=== PATIENT | male | born 1995 | race Caucasian/White ===

== ENCOUNTER 2020-07-12 11:09 | Outpatient (CLI) | payer MEDICAID, SELFPAY ==
[2020-07-12 13:23] LABS: CREATININE 1.24 mg/dL (0.70-1.30); Cholesterol 184 mg/dL (<200); HDL Cholesterol 26 mg/dL (40-60); Potassium 4.9 mmol/L (3.5-5.1); Triglyceride 448 mg/dL (<150)
[2020-07-12 13:29] LABS: Hemoglobin A1C 6.8 % (<5.7)
[2020-07-12 13:40] LABS: LDL CHOLESTEROL 112 mg/dL (<100)
[2020-07-12 13:45] LABS: COMMENT (LAB VIEW ONLY) 67.84 mg/dL; Microalb ug/mg Crea 1170.1 ug/mg Cr
== END 2020-07-12 11:29 ==
PROVIDERS: PCP Family Medicine; Visit Provider Family Medicine
DX: E11.65 Type 2 diabetes mellitus with hyperglycemia (principal); I10 Essential (primary) hypertension; E78.5 Hyperlipidemia, unspecified
CPT/HCPCS: 36415; 80061; 83721; 82043; 82565; 82570; 83036; 84132

== ENCOUNTER 2021-07-30 03:16 | Outpatient (CLI) | payer MEDICAID, SELFPAY ==
[2021-07-30 14:06] LABS: Hemoglobin A1C 5.6 % (<5.7)
[2021-07-30 14:29] LABS: Calculated LDL 100 mg/dL (<100); Cholesterol 168 mg/dL (<200); HDL Cholesterol 39 mg/dL (40-60); Triglyceride 145 mg/dL (<150)
== END 2021-07-30 03:17 | disposition home or self-care (01) ==
LOC: LOS 03:16
PROVIDERS: PCP Family Medicine; Visit Provider Family Medicine
DX: R73.9 Hyperglycemia, unspecified (principal); E78.5 Hyperlipidemia, unspecified
CPT/HCPCS: 36415; 80061; 83036

== ENCOUNTER 2022-04-02 01:27 | Outpatient (CLI) | payer MEDICAID, SELFPAY ==
--- OUTSIDE RECORDS SUMMARY | 2022-04-02 01:31 | XMS_ITS | Encounter Summary ---
:1995 Author Organization [facility] Address [address] [place] [address] Care Team Providers Name Role Phone None, Provider Primary Care Provider Unavailable Encounter Details Date Type Department Care Team Description 11/08/2014 Results Only [facility]- Jamie Porter, [address] [place], [place] [id number] (Wo rk) Social History Tobacco Use Types Packs/Day Years Used Date Never Assessed Sex Assigned at Date Recorded Not on file documented as of this encounter Plan of Treatment Not on filedocumented as of this encounter Procedures Procedure Name Priority Date/Time Associated Diagnosis Comme nts SURGICAL PATHOLOGY Routine 11/08/2014 10:26 Resul ts for this EST procedure are i n the results section. documented in this encounter Results SURGICAL PATHOLOGY (11/08/2014 10:26 EST) Pathology Report: SURGICAL PATHOLOGY REPORT [facility] Reports generated via electronic interface contain myla ginal data; LABORATORY however they are lacking the format of the original re port. SERVICES Caution should be taken when reading/interpreting unfo rmatted reports. Name: ? Kizzy QUACH ? Accession #: ? [id number] ? : ? 1995 (Age: 19) ??M ? Collect Date: ? 11/08/2014 ? Location: ? [facility] ? Receive Date: ? 11/09/19 15 ? Provider: JAMIE BOBBY DO Copy to: ? Final Pathologic Diagnosis: NOSE, LEFT INTRANASAL, MASS, BIOPSY: - ??Lobular capillary hemangioma (pyogenic granuloma). Document reviewed and electronically signed by: JAGDEEP WAYNE MD Report ??Date: 11/14/2014 14:52 By the signature above, the attending physician certif ies that he/she has personally conducted a gross and/or microscopic examin ation of the described specimens and rendered or confirmed the above diagnosi s. Specimen(s) Received: Left intranasal lesion Clinical History: Pedunculated intranasal mass; clinical diagnosis code: 239.2 Gross Description: ? Received in formalin labelled with proper patient identification (initials K, B) and left intranasal lesion is a posey-pink pedunculated mucosal covered tissue fragment (0.4 x 0.3 x 0.3 cm). ??The margin is inked blue. ??The specimen is submitted intact in 1. Dyan Londono 11/10/2014 11:36 AM End of Report Specimen Performing Organization Address City/State/ZIP Code Phon e Number [facility] [address] [place] [address] SERVICES documented in this encounter Visit Diagnoses Not on filedocumented in this encounter Care Teams Instructional Consultant Relationship Specialty Start Date End Date None, Provider PCP - General 11/09/14 documented as of this encounter
--- OUTSIDE RECORDS SUMMARY | 2022-04-02 01:31 | XMS_ITS | Encounter Summary ---
:1995 Author Organization [facility] Address [address] [place] [address] Care Team Providers Name Role Phone Unavailable Primary Care Provider Unavailable Encounter Details Date Type Department Care Team Description 11/08/2014 Hospital Encounter [facility]- Gayla Unknown, Provider, [facility] [phone] [place] [address] (Work) [phone] Social History Tobacco Use Types Packs/Day Years Used Date Never Assessed Sex Assigned at Date Recorded Not on file documented as of this encounter Discharge Disposition Disposition Code Departure Means Destination Home or Self [facility] documented in this encounter Plan of Treatment Not on filedocumented as of this encounter Visit Diagnoses Not on filedocumented in this encounter
[2022-04-02 13:03] LABS: CREATININE 1.2 mg/dL (0.70-1.30); Potassium 4.6 mmol/L (3.5-5.1)
[2022-04-02 13:15] LABS: Hemoglobin A1C 5.7 % (<5.7)
== END 2022-04-02 01:28 | disposition home or self-care (01) ==
LOC: LOS 01:27
PROVIDERS: PCP Family Medicine; Visit Provider Family Medicine
DX: I10 Essential (primary) hypertension (principal); R73.9 Hyperglycemia, unspecified
CPT/HCPCS: 36415; 82565; 83036; 84132

== ENCOUNTER 2023-04-07 04:53 | Outpatient (CLI) | payer MEDICAID, SELFPAY ==
[2023-04-07 12:34] LABS: CREATININE 1.4 mg/dL (0.70-1.30); Calculated LDL 104 mg/dL (<100); Cholesterol 177 mg/dL (<200); Estimated GFR 70.21 (mL/min/1.73m2); HDL Cholesterol 36 mg/dL (40-60); Potassium 4.5 mmol/L (3.5-5.1); Triglyceride 186 mg/dL (<150)
== END 2023-04-07 04:54 | disposition home or self-care (01) ==
LOC: LOS 04:53
PROVIDERS: PCP Family Medicine; Visit Provider Family Medicine
DX: I10 Essential (primary) hypertension (principal); E78.5 Hyperlipidemia, unspecified
CPT/HCPCS: 36415; 80061; 82565; 84132

== ENCOUNTER 2023-04-10 16:17 | Outpatient (REF) | payer MEDICAID, SELFPAY ==
[2023-04-10 17:30] LABS: COMMENT (LAB VIEW ONLY) 41.41 mg/dL
== END 2023-04-10 16:18 | disposition home or self-care (01) ==
LOC: NCHCN 16:17
PROVIDERS: PCP Family Medicine; Visit Provider Family Medicine
DX: E11.9 Type 2 diabetes mellitus without complications (principal)
CPT/HCPCS: 82043; 82570

== ENCOUNTER 2024-05-11 11:01 | Outpatient (CLI) | payer MEDICAID, SELFPAY ==
[2024-05-11 12:17] LABS: HCT 35.4 % (40.0-50.0); HGB 10.5 g/dL (13.5-17.5); MCH 22.5 pg (27.0-33.0); MCHC 29.7 % (32.0-36.0); MCV 76 fL (80-95); MPV 10.4 fL (8.0-11.0); Platelet Count 417 10^3/uL (130-400); RBC 4.67 10^6/uL (4.36-5.78); RDW 16.3 % (11.8-14.1); RDW-SD 44.6 fL; WBC 7.76 10^3/uL (4.4-10.8)
[2024-05-11 12:36] LABS: ALT 28 U/L (16-63); AST 14 U/L (15-37); Albumin 3.8 g/dL (3.4-5.0); Alkaline Phosphatase 74 U/L (46-116); Anion Gap 11.5 mmol/L (3-11); BUN 23 mg/dL (7-18); Bilirubin, Total 0.23 mg/dL (0.2-1.0); CO2 24.5 mmol/L (21.0-32.0); CREATININE 1.3 mg/dL (0.70-1.30); Calcium 9.4 mg/dL (8.5-10.1); Chloride 105 mmol/L (98-107); Estimated GFR 76.26 (mL/min/1.73m2); Glucose 98 mg/dL (74-106); Potassium 4.5 mmol/L (3.5-5.1); Sodium 141 mmol/L (136-145); Total Protein 8.4 g/dL (6.4-8.2)
[2024-05-11 22:01] LABS: Lab Add On Test DONE
[2024-05-11 22:14] LABS: Iron 22 ug/dL (65-175)
[2024-05-11 22:41] LABS: Ferritin 10 ng/mL (26-388); Vitamin B12 610 pg/mL (193-986)
== END 2024-05-11 11:02 | disposition home or self-care (01) ==
LOC: LOS 11:01
PROVIDERS: PCP Family Medicine; Referring Provider Family Medicine; Visit Provider Family Medicine
DX: R53.83 Other fatigue (principal); R10.9 Unspecified abdominal pain; D64.9 Anemia, unspecified; E11.9 Type 2 diabetes mellitus without complications; Z00.00 Encounter for general adult medical examination without abnormal findings
CPT/HCPCS: 36415; 80053; 85027; 82607; 82728; 83540

== ENCOUNTER 2024-05-11 14:45 | Outpatient (REF) | payer MEDICAID, SELFPAY ==
[2024-05-11 22:56] LABS: COMMENT (LAB VIEW ONLY) 36.91 mg/dL
[2024-05-11 23:02] LABS: Microalb ug/mg Crea 266.6 ug/mg Cr
== END 2024-05-11 14:46 | disposition home or self-care (01) ==
LOC: LBN 14:45
PROVIDERS: PCP Family Medicine; Visit Provider Family Medicine
DX: E11.9 Type 2 diabetes mellitus without complications (principal); R53.83 Other fatigue; D64.9 Anemia, unspecified; R10.9 Unspecified abdominal pain; Z00.00 Encounter for general adult medical examination without abnormal findings
CPT/HCPCS: 82043; 82570

== ENCOUNTER 2024-11-04 01:18 | Outpatient (CLI) | payer MEDICAID, SELFPAY ==
[2024-11-04 12:32] LABS: HCT 35.4 % (40.0-50.0); HGB 10.5 g/dL (13.5-17.5); MCH 23.1 pg (27.0-33.0); MCHC 29.7 % (32.0-36.0); MCV 78 fL (80-95); MPV 10.6 fL (8.0-11.0); Platelet Count 450 10^3/uL (130-400); RBC 4.54 10^6/uL (4.36-5.78); RDW 15.7 % (11.8-14.1); RDW-SD 44.1 fL; WBC 6.27 10^3/uL (4.4-10.8)
[2024-11-04 13:40] LABS: Iron 33 ug/dL (65-175); Total Iron Binding Capacity 357 ug/dL (250-450); Transferrin Sat 9 % (20-55)
== END 2024-11-04 01:19 | disposition home or self-care (01) ==
LOC: LOS 01:18
PROVIDERS: PCP Family Medicine; Visit Provider Family Medicine
DX: D64.9 Anemia, unspecified (principal); D50.9 Iron deficiency anemia, unspecified
CPT/HCPCS: 36415; 85027; 83540; 83550

== ENCOUNTER 2025-04-01 01:03 | Outpatient (CLI) | payer MEDICAID, SELFPAY ==
[2025-04-01 12:21] LABS: HCT 38.7 % (40.0-50.0); HGB 12.6 g/dL (13.5-17.5); MCH 28.3 pg (27.0-33.0); MCHC 32.6 % (32.0-36.0); MCV 87 fL (80-95); MPV 11.0 fL (8.0-11.0); Platelet Count 347 10^3/uL (130-400); RBC 4.45 10^6/uL (4.36-5.78); RDW 13.7 % (11.8-14.1); RDW-SD 43.4 fL; WBC 7.52 10^3/uL (4.4-10.8)
[2025-04-01 13:39] LABS: Iron 38 ug/dL (65-175); Total Iron Binding Capacity 318 ug/dL (250-450); Transferrin Sat 12 % (20-55)
[2025-04-01 13:50] LABS: Ferritin 33 ng/mL (26-388)
== END 2025-04-01 01:04 | disposition home or self-care (01) ==
LOC: LOS 01:03
PROVIDERS: PCP Family Medicine; Visit Provider Family Medicine
DX: D64.9 Anemia, unspecified (principal)
CPT/HCPCS: 36415; 85027; 82728; 83540; 83550